=== PATIENT | female | born 1985 | race Caucasian/White ===

== ENCOUNTER → 2022-08-16 | Outpatient (REF) | payer BC, OTHER ==
[~2022-08-16] MED LIST: ANUS2.5C2 TOP; COLA100C5 PO; MOM30SS PO; MOTR200T44 PO; TYLE167L PO
[2022-08-16 14:56] LABS: HEMATOCRIT 37.9 % (36.0-47.0); HEMOGLOBIN 12.7 g/dl (12.0-15.5); MEAN CORPUSCULAR HEMOGLOBIN 29.9 pg (27.0-33.0); MEAN CORPUSCULAR HGB CONC 33.5 g/dl (32.0-36.5); MEAN CORPUSCULAR VOLUME 89.2 fl (80.0-96.0); PLATELET COUNT, AUTOMATED 236 10^3/uL (150-450); RED BLOOD COUNT 4.25 10^6/uL (4.00-5.40); WHITE BLOOD COUNT 7.4 10^3/uL (4.0-10.0)
[2022-08-16 15:25] LABS: HIV 1&2 SCREEN NEGATIVE (NEGATIVE)
[2022-08-16 15:34] LABS: HEPATITIS C VIRUS ABY INDEX 0.07 INDEX (<0.8)
[2022-08-16 15:36] LABS: HCG, SERUM QUANTITATIVE 28201.5 MIU/ML (<4.2)
== END ==
LOC: M LAB REF 11:57
PROVIDERS: ATTEND Obstetrics & Gynecology
DX: O36.80X0 Pregnancy with inconclusive fetal viability, not applicable or unspecified (principal); Z32.01 Encounter for pregnancy test, result positive

== ENCOUNTER → 2022-09-06 | Outpatient (REF) | payer OTHER | LOC: M LAB REF 11:32 | PROVIDERS: ATTEND Obstetrics & Gynecology | DX: O02.1 Missed abortion (principal) ==

== ENCOUNTER → 2022-10-03 | Outpatient (REF) | payer OTHER | LOC: M LAB REF 16:31 | PROVIDERS: ATTEND Obstetrics & Gynecology | DX: O02.1 Missed abortion (principal) ==

== ENCOUNTER → 2024-06-25 | Outpatient (REF) | payer OTHER ==
[2024-06-25 18:16] LABS: HEMATOCRIT 42.6 % (36.0-47.0); HEMOGLOBIN 14.1 g/dl (12.0-15.5); MEAN CORPUSCULAR HEMOGLOBIN 29.3 pg (27.0-33.0); MEAN CORPUSCULAR HGB CONC 33.1 g/dl (32.0-36.5); MEAN CORPUSCULAR VOLUME 88.6 fl (80.0-96.0); PLATELET COUNT, AUTOMATED 293 10^3/uL (150-450); RED BLOOD COUNT 4.81 10^6/uL (4.00-5.40); WHITE BLOOD COUNT 8.7 10^3/uL (4.0-10.0)
[2024-06-25 18:48] LABS: PROGESTERONE 8.06 NG/ML
[2024-06-25 19:18] LABS: HIV 1&2 SCREEN NEGATIVE (NEGATIVE)
[2024-06-25 19:26] LABS: HCG, SERUM QUANTITATIVE 101726.5 MIU/ML (<4.2); HEPATITIS C VIRUS ABY INDEX 0.03 INDEX (<0.8)
== END ==
LOC: M LAB REF 16:47
PROVIDERS: ATTEND Obstetrics & Gynecology
DX: Z32.01 Encounter for pregnancy test, result positive (principal); O36.80X0 Pregnancy with inconclusive fetal viability, not applicable or unspecified; Z3A.00 Weeks of gestation of pregnancy not specified

== ENCOUNTER → 2024-11-19 | Outpatient (CLI) | payer OTHER ==
[2024-11-19 17:18] LABS: PLATELET COUNT, AUTOMATED 266 10^3/uL (150-450)
[2024-11-19 18:18] LABS: HIV 1&2 SCREEN NEGATIVE (NEGATIVE)
[2024-11-19 18:26] LABS: HEPATITIS C VIRUS ABY INDEX < 0.02 INDEX (<0.8)
[2024-11-19 20:20] LABS: Trichomonas vaginalis (AMP) NOT DETECTED (NEGATIVE)
[2024-11-19 20:44] LABS: GC DNA AMPLIFICATION NEGATIVE (NEGATIVE)
== END ==
LOC: M PLALAB 14:54
PROVIDERS: ATTEND Student in an Organized Health Care Education/Training Program
DX: Z34.80 Encounter for supervision of other normal pregnancy, unspecified trimester (principal); Z3A.00 Weeks of gestation of pregnancy not specified

== ENCOUNTER → 2024-11-19 | Outpatient (REF) | payer OTHER | LOC: M PLALAB 14:25 | PROVIDERS: ATTEND Student in an Organized Health Care Education/Training Program | DX: Z53.9 Procedure and treatment not carried out, unspecified reason (principal) ==

== ENCOUNTER → 2024-11-24 | Outpatient (CLI) | payer OTHER | LOC: M PLALAB 10:07 | PROVIDERS: ATTEND Student in an Organized Health Care Education/Training Program | DX: Z34.80 Encounter for supervision of other normal pregnancy, unspecified trimester (principal) ==

== ENCOUNTER → 2024-11-27 | Outpatient (CLI) | payer OTHER | LOC: M WHC 10:38 | PROVIDERS: ATTEND Student in an Organized Health Care Education/Training Program | DX: Z34.83 Encounter for supervision of other normal pregnancy, third trimester (principal); Z3A.29 29 weeks gestation of pregnancy ==

== ENCOUNTER → 2024-12-30 | Outpatient (CLI) | payer OTHER | LOC: M RAD 16:25 | PROVIDERS: ATTEND Obstetrics & Gynecology | DX: O09.523 Supervision of elderly multigravida, third trimester (principal); Z3A.34 34 weeks gestation of pregnancy ==

== ENCOUNTER → 2025-01-15 | Outpatient (REF) | payer OTHER ==
[~2025-01-15] MED LIST changes: +IBUP80TA PO; +PRENTAB9 PO
== END ==
LOC: M SFHCWAGY 14:59
PROVIDERS: ATTEND Obstetrics & Gynecology
DX: O09.529 Supervision of elderly multigravida, unspecified trimester (principal); Z3A.36 36 weeks gestation of pregnancy

== ENCOUNTER 2025-02-07 06:56 | Inpatient (IN) | payer OTHER ==
[2025-02-07] VITALS (16 sets, daily range): BP systolic 103–126; BP diastolic 53–76; O2SAT 96
[~2025-02-07] VITALS: Ht 157.5 cm; Wt 74.2 kg
[~2025-02-07 06:56] MED LIST changes: -IBUP80TA PO; -PRENTAB9 PO
[2025-02-07] MEDS ORDERED: PRENTAB9 PO (07:10)
[2025-02-07] MEDS ORDERED: HOME MED LIST COMPLETE! XX SCH (07:15)
[2025-02-07] MEDS ORDERED: OXYTOCIN 30UNITS IN 0.9% NaCl 500ML IV BAG IV ONE (08:04)
[2025-02-07] MEDS ORDERED: OXYTOCIN DRIP 30 UNITS in IV 1 EA IV PRN (08:05)
[2025-02-07] MEDS ORDERED: OXYTOCIN INJ 10UNITS/ML 1ML VIAL IM PRN (08:05)
[2025-02-07] MEDS ORDERED: TRANEXAMIC ACID INJection 1,000 MG in NS 100 ML IV PRN (08:05)
[2025-02-07 08:24] LABS: PLATELET COUNT, AUTOMATED 224 10^3/uL (150-450)
[2025-02-07] MEDS: OXYTOCIN DRIP 30 UNITS in IV 1 EA IV PRN (09:09)
[2025-02-07] MEDS: LIDOCAINE 1% MDV 20 ML VIAL INFIL PRN (09:10)
[2025-02-07 09:20] LABS: CORD GAS ABE A -5.0; CORD GAS HCO3 A 23.6 MMOL/L; CORD GAS O2 SAT A 19.3 %; CORD GAS PCO2 A 56.5 mmHg; CORD GAS PH A 7.238 UNITS; CORD GAS PO2 A 14.2 mmHg; CORD GAS SBC A 18.2 MMOL/L; CORD GAS TCO2 A 25.3 MMOL/L
[2025-02-07 09:22] LABS: CORD GAS ABE V -3.8; CORD GAS HCO3 V 20.9 MMOL/L; CORD GAS O2 SAT V 54.8 %; CORD GAS PCO2 V 37.7 mmHg; CORD GAS PH V 7.362 UNITS; CORD GAS PO2 V 24.1 mmHg; CORD GAS SBC V 20.1 MMOL/L; CORD GAS TCO2 V 22.1 MMOL/L
[2025-02-07 09:25] LABS: HIV 1&2 SCREEN NEGATIVE (NEGATIVE)
[2025-02-07 09:33] LABS: HEPATITIS C VIRUS ABY INDEX 0.03 INDEX (<0.8)
[2025-02-07] MEDS ORDERED: METHYLERGONOVINE MALEATE 0.2 MG TAB PO PRN (09:50)
[2025-02-07] MEDS ORDERED: ACETAMINOPHEN 325 MG TAB PO PRN (09:50)
[2025-02-07] MEDS ORDERED: IBUPROFEN 600 MG TAB PO PRN (09:50)
[2025-02-07] MEDS ORDERED: ANUSOL HC CREAM 30 GM TOP PRN (09:50)
[2025-02-07] MEDS: IBUPROFEN 800 MG TAB PO PRN (12:18)
[2025-02-07] MEDS: RHOGAM 300MCG (1500IU) INJ IM SCH (12:34)
[2025-02-07] MEDS: METHYLERGONOVINE MALEATE 0.2 MG/ML 1 ML VIAL IM PRN (13:31)
[2025-02-07] MEDS: ACETAMINOPHEN 500 MG TAB PO PRN (13:41)
[2025-02-07] MEDS: DIBUCAINE 1% OINTMENT 30 GM TOP PRN (14:21)
[2025-02-07] MEDS: PRENATAL VITAMINS CHEWABLE TABLET PO SCH (18:31)
[2025-02-08 06:00] VITALS: BP 93/54; O2SAT 99
[2025-02-08 07:51] LABS: PLATELET COUNT, AUTOMATED 187 10^3/uL (150-450)
[2025-02-08] MEDS: DOCUSATE SODIUM 100 MG CAPSULE PO PRN (08:59)
[2025-02-08 18:01] VITALS: BP 106/67; O2SAT 99
[2025-02-09 06:00] VITALS: BP 107/67; O2SAT 98
[2025-02-09] MEDS: MEASLES,MUMPS,RUBELLA VACCINE INJ (MMR-II) SC.IMMUN ONE (09:00)
[2025-02-09 10:46] LABS: BASO # 0.1 10^3/uL (0.0-0.2); BASO % 0.6 % (0.0-1.0); EOS # 0.2 10^3/uL (0.0-0.5); EOS % 1.5 % (0.0-3.0); LYMPH # 1.9 10^3/uL (1.5-5.0); LYMPH % 15.5 % (24.0-44.0); MONO # 1.0 10^3/uL (0.0-0.8); MONO % 7.8 % (2.0-8.0); NEUTROPHILS # 8.8 10^3/uL (1.5-8.5); NEUTROPHILS % 72.1 % (36.0-66.0); PLATELET COUNT, AUTOMATED 242 10^3/uL (150-450)
[2025-02-09 11:33] LABS: ALT/SGPT 23 U/L (7.0-40); AST/SGOT 29 U/L (<34); CALCIUM LEVEL 9.4 MG/DL (8.5-10.1); CARBON DIOXIDE LEVEL 26 MMOL/L (20-31); CHLORIDE LEVEL 104 MMOL/L (98-107); CREATININE FOR GFR 0.48 MG/DL (0.55-1.30); GLOMERULAR FILTRATION RATE > 90.0 (>60); POTASSIUM SERUM 3.9 MMOL/L (3.5-5.1); SODIUM LEVEL 139 MMOL/L (136-145)
[2025-02-09] MEDS ORDERED: IBUP80TA PO (12:47)
[2025-02-10] MEDS ORDERED: FERROUS SULFATE 325 MG TAB PO SCH (09:00)
== END 2025-02-09 15:00 | disposition home or self-care (01) | DRG 560 ==
LOC: M LDO 06:56 → M LDI 08:06 → M OBS 17:22
PROVIDERS: ADMIT Obstetrics & Gynecology; ATTEND Obstetrics & Gynecology
PROC: 0KQM0ZZ Repair Perineum Muscle, Open Approach (ICD-10-PCS; principal; 2025-02-07)
PROC: 10E0XZZ Delivery of Products of Conception, External Approach (ICD-10-PCS; 2025-02-07)
DX: O32.6XX0 Maternal care for compound presentation, not applicable or unspecified (principal); O09.523 Supervision of elderly multigravida, third trimester; Z37.0 Single live birth; Z3A.40 40 weeks gestation of pregnancy; O70.1 Second degree perineal laceration during delivery